=== PATIENT | male | born 1985 | race Caucasian/White ===

== ENCOUNTER 2017-10-07 14:43 | Emergency (ER) | payer BC, OTHER ==
[2017-10-07 14:49] VITALS: BP 130/83; PULSE 80; TEMP 98; BMI 40.3
[2017-10-07] MEDS ORDERED: KETOROLAC TROMETHAMINE 60 MG/2 ML VIAL IM ONE (15:45)
[2017-10-07] MEDS ORDERED: KETOROLAC TROMETHAMINE 60 MG/2 ML VIAL ONE (15:47)
--- NOTE | 2017-10-07 15:53 | PDOC ---
History of Present Illness - General Chief Complaint: Pain, Acute Stated Complaint: SHOULDER PAIN Time Seen by Provider: 10/07/17 15:00 History Source: Patient Exam Limitations: No Limitations - History of Present Illness Initial Comments: 10/07/17 15:50 32-year-old male presents to the ED with complaints of right shoulder pain for the past 2 days. Patient states was leaning over to pick something up 3 days ago but had no discomfort to the area and then the next morning woke up with pain causing him difficulty raising his arm to the side and in the front. Patient denies radiation of pain down his right arm to his right chest or abdomen. Patient denies rash, swelling or deformity or previous injury to affected area. 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 Timing/Duration: other Severity: mild Associated Symptoms: reports: denies symptoms Past History - Past Medical History Allergies/Adverse Reactions: Allergies Allergy/AdvReac Type Severity Reaction Status Date / Time No Known Allergies Allergy Verified 10/07/17 14:49 Home Medications: Ambulatory Orders NK [No Known Home Medication] 10/07/17 COPD: No - Immunization History Immunization Up to Date: No - Suicide/Smoking/Psychosocial Hx Smoking History: Never smoked Have you smoked in the past 12 months: No Information on smoking cessation initiated: No Hx Alcohol Use: No Drug/Substance Use Hx: No Substance Use Type: None Patient Lives Alone: No Lives with/in: spouse/SO Review of Systems - Review of Systems Able to Perform ROS?: No Constitutional: No: Symptoms Reported Musculoskeletal: Yes: Joint Pain (right shoulder). No: Joint Swelling, Muscle Pain Integumentary: No: Symptoms Reported Neurological: No: Symptoms reported *Physical Exam - Vital Signs Last Vital Signs Temp Pulse Resp BP Pulse Ox 98 F 80 19 130/83 100 10/07/17 14:47 10/07/17 14:47 10/07/17 14:47 10/07/17 14:47 10/07/17 14:47 - Physical Exam General Appearance: Yes: Nourished, Appropriately Dressed Neck: positive: Supple. negative: Tender, Decreased range of motion Respiratory/Chest: positive: Lungs Clear, Normal Breath Sounds. negative: Respiratory Distress, Accessory Muscle Use Cardiovascular: positive: Regular Rhythm, Regular Rate. negative: Murmur Extremity: positive: Normal Capillary Refill, Normal Inspection. negative: Normal Range of Motion (unable to perform lateral and front raise. 5+ shoulder shrug), Tender (over rightac jount) Integumentary: positive: Normal Color, Warm, Moist Neurologic: positive: Motor Strength 5/5 (ambulatory) ED Treatment Course - RADIOLOGY Radiology Studies Ordered: Category Date Time Status SHOULDER-RIGHT [RAD] Stat Radiology 10/07/17 15:46 Ordered Medical Decision Making - Medical Decision Making 10/07/17 16:03 Pt with right shoulder pain x 2 days. Pt had tenderness over rt ac joint and unable to perform FROM. Pt ordered for xray and toradol 10/07/17 16:33 Pt states feeling moderate relief of rt shoulder pain. *DC/Admit/Observation/Transfer Diagnosis at time of Disposition: Right shoulder pain Qualifiers: Chronicity: acute Qualified Code(s): M25.511 - Pain in right shoulder - Discharge Dispostion Disposition: HOME Condition at time of disposition: Good - Referrals Referrals: Gopal Joiner MD [Staff Physician] - - Patient Instructions Printed Discharge Instructions: DI for Shoulder Pain Additional Instructions: Please follow-up with referred orthopedist and take Motrin as recommended. Please also apply ice to the affected area as much as you can tolerate. - Post Discharge Activity Forms/Work/School Notes: Back to Work
== END 2017-10-07 17:05 | disposition home or self-care (01) ==
LOC: JERFT 14:43
PROC: 3E0233Z Introduction of Anti-inflammatory into Muscle, Percutaneous Approach (ICD-10-PCS; principal; 2017-10-07)
DX: M25.511 Pain in right shoulder (principal)
CPT/HCPCS: 73030-TC-RT; 99281-25

== ENCOUNTER 2018-04-06 15:34 | Observation (INO) | payer BC, OTHER ==
[2018-04-06 15:42] VITALS: BMI 45.0
--- NOTE | 2018-04-06 16:21 | PDOC ---
History of Present Illness - General History Source: Patient Exam Limitations: No Limitations - History of Present Illness Initial Comments: 04/06/18 16:23 The patient is a 33 year old male, with no significant past medical history, who presents to the emergency department s/p syncopal episode earlier this evening. The patient reports he was going from a seated to standing position to get ready for work, when suddenly he passed out for several seconds. The patient reports waking up with left sided chest pain and palpitations. He describes the pain as a burning sensation that radiates down his left arm. Patient reports his chest pain lasted about 30 minutes. He denies any associated back pain, shortness of breath, diaphoresis, lightheadedness, or lower extremity edema. He denies any abdominal pain, nausea or vomiting. He denies any recent fever, chills, headache, or dizziness. Patient is scheduled to see a Dealer Compliance Representative for a holter monitor and a stress test, as he has had similar episodes of chest pain in the past. He denies any recent travel or sick contacts. Patient is not on any blood thinners Allergies: NKDA Past Surgical History: None reported Social History: Non smoker. No ETOH or recreational drug Family History: DC(uncle, at 45). PCP: At [facility] <Con Segovia - Last Filed: 04/06/18 17:03> - General History Source: Patient Exam Limitations: No Limitations <Haley Arroyo - Last Filed: 04/06/18 17:50> - General Chief Complaint: Chest Pain Stated Complaint: chest pain Past History <Con Segovia - Last Filed: 04/06/18 17:03> - Past Medical History COPD: No DVT: No - Immunization History Immunization Up to Date: No - Suicide/Smoking/Psychosocial Hx Smoking History: Never smoked Have you smoked in the past 12 months: No Hx Alcohol Use: No Drug/Substance Use Hx: No Substance Use Type: Alcohol <Haley Arroyo - Last Filed: 04/06/18 17:50> - Past Medical History Allergies/Adverse Reactions: Allergies Allergy/AdvReac Type Severity Reaction Status Date / Time No Known Allergies Allergy Verified 04/06/18 15:35 Home Medications: Ambulatory Orders NK [No Known Home Medication] 04/06/18 Review of Systems - Review of Systems Able to Perform ROS?: Yes Comments:: 04/06/18 16:23 GENERAL/CONSTITUTIONAL: No fever or chills. No weakness. HEAD, EYES, EARS, NOSE AND THROAT: No change in vision. No ear pain or discharge. No sore throat. CARDIOVASCULAR: No chest pain or shortness of breath. RESPIRATORY: No cough, wheezing, or hemoptysis. GASTROINTESTINAL: No nausea, vomiting, diarrhea or constipation. GENITOURINARY: No dysuria, frequency, or change in urination. MUSCULOSKELETAL: No joint or muscle swelling or pain. No neck or back pain. SKIN: No rash NEUROLOGIC: +Loss of consciousness. No headache, vertigo, or change in strength/ sensation. ENDOCRINE: No increased thirst. No abnormal weight change. HEMATOLOGIC/LYMPHATIC: No anemia, easy bleeding, or history of blood clots. ALLERGIC/IMMUNOLOGIC: No hives or skin allergy. <Con Segovia - Last Filed: 04/06/18 17:03> *Physical Exam - Vital Signs Last Vital Signs Temp Pulse Resp BP Pulse Ox 99.2 F 94 H 16 144/92 94 L 04/06/18 15:35 04/06/18 15:35 04/06/18 15:35 04/06/18 15:35 04/06/18 15:35 - Physical Exam Comments: 04/06/18 16:24 GENERAL: Awake, alert, and fully oriented, in no acute distress HEAD: No signs of trauma EYES: PERRLA, EOMI, sclera anicteric, conjunctiva clear ENT: Auricles normal inspection, hearing grossly normal, nares patent. Moist mucosa NECK: Normal ROM, supple, no lymphadenopathy, JVD, or masses LUNGS: Breath sounds equal, clear to auscultation bilaterally. No wheezes, and no crackles HEART: Regular rate and rhythm, normal S1 and S2, no murmurs, rubs or gallops ABDOMEN: Morbidly obese. Soft, nontender, normoactive bowel sounds. No guarding , no rebound. No masses EXTREMITIES: Normal range of motion, no edema. No erythema or tenderness. DP/ PT pulses 2+ and symmetric. Warm and well perfused. NEUROLOGICAL: Moves all extremities. Normal speech, normal gait SKIN: Warm, Dry, normal turgor, no rashes or lesions noted. <Con Segovia - Last Filed: 04/06/18 17:03> - Vital Signs Last Vital Signs Temp Pulse Resp BP Pulse Ox 99.2 F 94 H 16 144/92 94 L 04/06/18 15:35 04/06/18 15:35 04/06/18 15:35 04/06/18 15:35 04/06/18 15:35 <Haley Arroyo - Last Filed: 04/06/18 17:50> Heart Score/ECG Review - History History: Moderately suspicious - Electrocardiogram EKG: Non specific repolarization disturbance - Age Age: </= 45 - Risk Factors Risk Factors Heart Score: Yes Positive family hx of cardiac disease, Yes Hx Obesity Based on the list above the patient has:: 1-2 risk factors - Troponin Troponin: </= normal limit - Score Heart Score - Total: 3 #1 General ECG Interpretation: Sinus Rhythm, Normal Rate (82), Normal Intervals, No acute ischemic changes (TWI II, flat AVF) <Haley Arroyo - Last Filed: 04/06/18 17:50> ED Treatment Course - LABORATORY CBC & Chemistry Diagram: 04/06/18 16:33 04/06/18 16:33 <Con Segovia - Last Filed: 04/06/18 17:03> - LABORATORY CBC & Chemistry Diagram: 04/06/18 16:33 04/06/18 16:33 <Haley Arroyo - Last Filed: 04/06/18 17:50> Medical Decision Making - Medical Decision Making 04/06/18 16:19 33 yo m h/o obesity, here s/p syncopal event. precipitated by cp and racing heart beat. breif loc. landed on bed. no f/c no n/v lasteed 30 min. occasional bout of cp radiating to back and arm. no new numbnes or tingling. no sob. no leg swelling no h/o pe or dvt. on exam awake alert lungs clear bilaterally heart rrr no mrg. abd obese soft nt. ext no edema. no calf tenderness. nuero alert oriented x 3 plan: differential dysrhtymia, acs, vasovagal, dehydration, anemia. plan ekg labs trop cxr asa. due to obesity and risk factor of family h/o cad. pt will require short observation repeat troponoin. 04/06/18 17:50 intial trop negative. given asa cxr unremarkable. labs unremarkable. due to risk factors, severe obesity and family history will admit to observation on telemtry for rule out. <Haley Arroyo - Last Filed: 04/06/18 17:50> *DC/Admit/Observation/Transfer - Attestations Scribe Attestion: 04/06/18 16:24 Documentation prepared by Con Segovia, acting as medical records assistant for Haley Arroyo MD. <Con Segovia - Last Filed: 04/06/18 17:03> - Discharge Dispostion Decision to Admit order: Yes <Haley Arroyo - Last Filed: 04/06/18 17:50> Diagnosis at time of Disposition: Syncope, Chest pain - Discharge Dispostion Condition at time of disposition: Stable
[2018-04-06] MEDS ORDERED: ASPIRIN 81 MG CHEWABLE TABLETS PO ONE (16:23)
[2018-04-06] MEDS ORDERED: ASPIRIN 81 MG CHEWABLE TABLETS ONE (16:25)
[2018-04-06 16:56] LABS: EOS % 4.9 % (0-4.5); HEMATOCRIT 44.6 % (35.4-49); HEMOGLOBIN 15.3 GM/dl (11.7-16.9); LYMPH % 29.9 % (8-40); MCH 27.1 pg (25.7-33.7); MCHC 34.2 g/dl (32.0-35.9); MEAN CELL VOLUME 79.3 fl (80-96); MEAN PLT VOLUME 9.7 fl (7.5-11.1); MONO % 8.3 % (3.8-10.2); NEUT % 55.9 % (42.8-82.8); PLATELET COUNT 256 K/MM3 (134-434); RBC 5.63 M/mm3 (4.00-5.60); RDW 13.4 % (11.9-15.9); WHITE BLOOD COUNT 7.1 K/mm3 (4.0-10.8)
[2018-04-06 17:05] LABS: ALBUMIN 3.5 g/dl (3.5-5.0); ALK PHOS 49 U/L (32-92); ANION GAP 6 (8-16); BILIRUBIN,TOTAL 0.4 mg/dl (0.2-1.0); BLOOD UREA NITROGEN 12 mg/dl (7-18); CALCIUM 9.1 mg/dl (8.4-10.2); CHLORIDE 104 mmol/L (98-107); CO2 29 mmol/L (22-28); GLUCOSE,RANDOM 125 mg/dl (74-106); POTASSIUM 3.9 mmol/L (3.5-5.1); SGOT/AST 31 U/L (10-42); SGPT/ALT 45 U/L (10-40); SODIUM 139 mmol/L (136-145); TOT PROT 6.4 g/dl (6.4-8.3)
[2018-04-06] MEDS ORDERED: SODIUM CHLORIDE 0.9% 1000 ML INFUS.BAG IV ONE (17:54)
[2018-04-06] MEDS ORDERED: ACETAMINOPHEN 325 MG TABLET (FP) PO ONE (17:55)
[2018-04-06] MEDS ORDERED: ACETAMINOPHEN 325 MG TABLET (FP) ONE (17:57)
--- NOTE | 2018-04-06 22:03 | HP ---
CHIEF COMPLAINT: Syncope, Chest Pain, L-Arm Numbness, Headache PCP: HISTORY OF PRESENT ILLNESS: 33 y/o man with PMH Severe Obesity. Who presents to the ED with syncope, L- sided chest pain, L- arm numbness x pm, and L- sided BUSH x4 days. Patient reports while getting up from bed he began to have sharp, intermittent chest pain radiating to his lower back, with numbness to his L-arm. Patient also reports having palpitations with SOB and lightheadedness. Patient reports having recent headaches above his left brow- aura "sonic sounds" with some relief with NSAIDs. He denies recent fall or trauma. Patient denies fever, cough , chills, N/V/D, constipation, dysuria ER course was notable for: (1) Troponin I- neg (2) EKG NSR 82 bpm, TWI II, flat AVF (3) Recent Travel: None PAST MEDICAL HISTORY: See HPI PAST SURGICAL HISTORY: Pilonidal Cyst Social History: Smoking: Never Alcohol: Social Drugs: Never Lives with spouse, employed Bulk Truck Driver Family History: Mother: DM, Sleep Apnea Uncle: DC Aunt: DC, DM Paternal Grandmother: Stroke, DM Maternal Grandmother: DM Allergies No Known Allergies Allergy (Verified 04/06/18 15:35) HOME MEDICATIONS: Home Medications Medication Instructions Recorded NK [No Known Home Medication] 04/06/18 REVIEW OF SYSTEMS CONSTITUTIONAL: Absent: fever, chills, diaphoresis, generalized weakness, malaise, loss of appetite, weight change HEENT: Absent: rhinorrhea, nasal congestion, throat pain, throat swelling, difficulty swallowing, mouth swelling, ear pain, eye pain, visual changes CARDIOVASCULAR: chest pain, syncope, palpitations, lightheadedness Absent: irregular heart rate, peripheral edema RESPIRATORY: shortness of breath Absent: cough, dyspnea with exertion, orthopnea, wheezing, stridor, hemoptysis GASTROINTESTINAL: Absent: abdominal pain, abdominal distension, nausea, vomiting, diarrhea, constipation, melena, hematochezia GENITOURINARY: Absent: dysuria, frequency, urgency, hesitancy, hematuria, flank pain, genital pain MUSCULOSKELETAL: back pain Absent: myalgia, arthralgia, joint swelling, neck pain SKIN: Absent: rash, itching, pallor HEMATOLOGIC/IMMUNOLOGIC: Absent: easy bleeding, easy bruising, lymphadenopathy, frequent infections ENDOCRINE: Absent: unexplained weight gain, unexplained weight loss, heat intolerance, cold intolerance NEUROLOGIC: headache, paresthesias Absent: focal weakness, dizziness, unsteady gait, seizure, mental status changes , bladder or bowel incontinence PSYCHIATRIC: Absent: anxiety, depression, suicidal or homicidal ideation, hallucinations. PHYSICAL EXAMINATION Vital Signs - 24 hr 04/06/18 04/06/18 04/06/18 15:35 17:50 18:40 Temperature 99.2 F 98 F Pulse Rate 94 H 86 Pulse Rate [ 70 Apical] Pulse Rate [ Right side Sitting] Pulse Rate [ Right side Standing] Pulse Rate [ Right side Supine] Respiratory 16 17 18 Rate Blood Pressure 144/92 145/70 Blood Pressure 114/64 [Left Arm] Blood Pressure [Right side Sitting] Blood Pressure [Right side Standing] Blood Pressure [Right side Supine] O2 Sat by Pulse 94 L 97 Oximetry (%) 04/06/18 19:04 Temperature Pulse Rate Pulse Rate [ Apical] Pulse Rate [ 72 Right side Sitting] Pulse Rate [ 72 Right side Standing] Pulse Rate [ 87 Right side Supine] Respiratory Rate Blood Pressure Blood Pressure [Left Arm] Blood Pressure 146/95 [Right side Sitting] Blood Pressure 140/85 [Right side Standing] Blood Pressure 145/70 [Right side Supine] O2 Sat by Pulse Oximetry (%) GENERAL: Severe Obesity, awake, alert, and fully oriented, in no acute distress. HEAD: Normal with no signs of trauma. EYES: Pupils equal, round and reactive to light, extraocular movements intact, sclera anicteric, conjunctiva clear. No lid lag. EARS, NOSE, THROAT: Ears normal, nares patent, oropharynx clear without exudates. Moist mucous membranes. NECK: Normal range of motion, supple without lymphadenopathy, JVD, or masses. LUNGS: Breath sounds equal, clear to auscultation bilaterally. No wheezes, and no crackles. No accessory muscle use. HEART: Regular rate and rhythm, normal S1 and S2 without murmur, rub or gallop. CP non-reproducible ABDOMEN: Soft, nontender, not distended, normoactive bowel sounds, no guarding, no rebound, no masses. No hepatomegaly or splenomegaly. MUSCULOSKELETAL: Normal range of motion at all joints. No bony deformities or tenderness. No CVA tenderness. UPPER EXTREMITIES: 2+ pulses, warm, well-perfused. No cyanosis. No clubbing. No peripheral edema. LOWER EXTREMITIES: 2+ pulses, warm, well-perfused. No calf tenderness. No peripheral edema. NEUROLOGICAL: Cranial nerves II-XII intact. Normal speech. Gait not observed. PSYCHIATRIC: Cooperative. Good eye contact. Appropriate mood and affect. SKIN: Warm, dry, normal turgor, no rashes or lesions noted, normal capillary refill. Laboratory Results - last 24 hr 04/06/18 04/06/18 04/06/18 16:33 16:33 16:33 WBC 7.1 RBC 5.63 H Hgb 15.3 Hct 44.6 MCV 79.3 L MCH 27.1 MCHC 34.2 RDW 13.4 Plt Count 256 MPV 9.7 Absolute Neuts (auto) 4.0 Neutrophils % 55.9 Lymphocytes % 29.9 Monocytes % 8.3 Eosinophils % 4.9 H Basophils % 1.0 Sodium 139 Potassium 3.9 Chloride 104 Carbon Dioxide 29 H Anion Gap 6 L BUN 12 Creatinine 1.0 Creat Clearance w eGFR > 60 Random Glucose 125 H Calcium 9.1 Total Bilirubin 0.4 AST 31 ALT 45 H Alkaline Phosphatase 49 Troponin I < 0.03 Total Protein 6.4 Albumin 3.5 ASSESSMENT/PLAN: 33 y/o man PMH Severe Obesity. Placed in Tele Observation for Chest Pain r/o ACS , Syncope, Acute Headache. Plan: 1. Cardiology Chest Pain Syncope - r/o ACS - Continue cardiac monitoring - HEART SCORE 3 - DARA Score 1 - Serial Enzymes negx1 - Chest Xray- no acute pathology - EKG- NSR with TWI II, flat AVF, no available study to compare - Asa given in ED, will continue - Appreciate Cardiology consult - Echo - Lipid Profile in am - HgbA1c in am - EKG in am 2. Neurology Acute Headache - CT Head in am r/o ICH, mass or tumor - Fioricet prn - Consider Neurology if condition worsens or f/u outpatient if CT head neg - Neuro checks 3. Pulmonology r/o CARLOS - STOP-BANG Score 6 - Elevate HOB - f/u Sleep Study outpatient - f/u with Pulmonology - Monitor vitals 4. Endocrinology Severe Obesity - Monitor vitals - RD Consult - Carb Control Diet - f/u Bariatrics outpatient 5. FEN - PO Fluids as tolerated - Replete lytes prn - Low Na, Low Cholesterol, Carb Control Diet 6. DVT ppx - OOB - SCDs - Consider ACs if LOS > 48 hrs Code Status: Full Code Dispo: Tele Observation Problem List - Problem (1) Syncope Code(s): R55 - SYNCOPE AND COLLAPSE (2) Chest pain Code(s): R07.9 - CHEST PAIN, UNSPECIFIED (3) Acute headache Code(s): R51 - HEADACHE (4) CARLOS (obstructive sleep apnea) Code(s): G47.33 - OBSTRUCTIVE SLEEP APNEA (ADULT) (PEDIATRIC) (5) Severe obesity (BMI >= 40) Code(s): E66.01 - MORBID (SEVERE) OBESITY DUE TO EXCESS CALORIES Visit type - Emergency Visit Emergency Visit: Yes ED Registration Date: 04/06/18 Care time: The patient presented to the Emergency Department on the above date and was hospitalized for further evaluation of their emergent condition. - New Patient This patient is new to me today: Yes Date on this admission: 04/06/18 - Critical Care Critical Care patient: No Hospitalist Screening - Colonoscopy Questionnaire Colonoscopy Questionnaire: Colonoscopy Questionnaire - Patient: 50 - 75 years old and never had a screening colonoscopy: No History of colon or rectal polyps, or CA: No History of IBD, Crohn's disease or UC: No History of abdominal radiation therapy as a child: No - Relative: 1 with colon or rectal CA, or polyps at age 60 or younger: No Colon or rectal CA diagnosed at age 45 or younger: No Multiple relatives with colon or rectal CA: No - Outcome: Screening Result: Negative Screen
[2018-04-07] MEDS ORDERED: ACETAMINOPHEN/CAFFEINE/BUTALBITAL 1 TAB PO PRN (02:47)
[2018-04-07 08:59] LABS: ANION GAP 3 (8-16); BLOOD UREA NITROGEN 11 mg/dl (7-18); CALCIUM 8.8 mg/dl (8.4-10.2); CHLORIDE 106 mmol/L (98-107); CO2 28 mmol/L (22-28); GLUCOSE,RANDOM 101 mg/dl (74-106); MAGNESIUM 1.9 mg/dL (1.8-2.4); PHOSPHOROUS 4.5 mg/dl (2.5-4.6); SODIUM 137 mmol/L (136-145)
[2018-04-07 09:05] LABS: CHOLESTEROL 219 mg/dl; HDL CHOLESTEROL 33 mg/dl (29-89); LDL CHOLESTEROL (ONLY DFH) 152 mg/dl; TRIGLYCERIDES 170 mg/dl (35-160)
[2018-04-07 09:16] LABS: BASO % 0.9 % (0-2.0); EOS % 5.6 % (0-4.5); HEMATOCRIT 44.1 % (35.4-49); HEMOGLOBIN 14.7 GM/dl (11.7-16.9); LYMPH % 31.6 % (8-40); MCH 26.4 pg (25.7-33.7); MCHC 33.3 g/dl (32.0-35.9); MEAN CELL VOLUME 79.5 fl (80-96); MEAN PLT VOLUME 9.9 fl (7.5-11.1); MONO % 9.3 % (3.8-10.2); NEUT % 52.6 % (42.8-82.8); PLATELET COUNT 233 K/MM3 (134-434); RBC 5.55 M/mm3 (4.00-5.60)
[2018-04-07] MEDS ORDERED: ASPIRIN 81 MG CHEWABLE TABLETS PO SCH (10:00)
--- NOTE | 2018-04-07 12:30 | CON.CARD ---
Cardiology Consult (text) - Consultation Consultation Note: cc: cp hpi: 33 m hx obesity here for cp. For weeks has had intermittent cp. Sharp, left chest/shoulder, lasts a second, resolves on own, worse with movement of arm. Also occasional palps (heart racing for few seconds) over past few weeks. Yesterday stood up quickly and felt lightheaded and thinks he passed out briefly. Feeling well now. No hx hrt dz. pmh: per hpi psh: nc social: no tob fam: uncle mi 45 ros: per hpi; no nvd fever, cough, gib hematuria dysuria wt loss muscle pains meds: Home Medications Medication Instructions Recorded NK [No Known Home Medication] 04/06/18 pe: Vital Signs Period Temp Pulse Resp BP Sys/Vizcarra Pulse Ox Last 24 Hr 97.7 F-99.2 F 63-94 16-19 113-146/62-95 94-100 nad no jvd rrr s1s2 no mrg cta bl nl eff aaox3 no le e/c/c abd nt nd pos bs no jaundice diaphoresis pos dp pt no carotid bruits Laboratory Last Values WBC 7.0 K/mm3 (4.0-10.8) 04/07/18 07:33 RBC 5.55 M/mm3 (4.00-5.60) 04/07/18 07:33 Hgb 14.7 GM/dl (11.7-16.9) 04/07/18 07:33 Hct 44.1 % (35.4-49) 04/07/18 07:33 MCV 79.5 fl (80-96) L 04/07/18 07:33 MCH 26.4 pg (25.7-33.7) 04/07/18 07:33 MCHC 33.3 g/dl (32.0-35.9) 04/07/18 07:33 RDW 14.0 % (11.9-15.9) 04/07/18 07:33 Plt Count 233 K/MM3 (134-434) 04/07/18 07:33 MPV 9.9 fl (7.5-11.1) 04/07/18 07:33 Absolute Neuts (auto) 3.7 # 04/07/18 07:33 Neutrophils % 52.6 % (42.8-82.8) 04/07/18 07:33 Lymphocytes % 31.6 % (8-40) 04/07/18 07:33 Monocytes % 9.3 % (3.8-10.2) 04/07/18 07:33 Eosinophils % 5.6 % (0-4.5) H 04/07/18 07:33 Basophils % 0.9 % (0-2.0) 04/07/18 07:33 Sodium 137 mmol/L (136-145) 04/07/18 07:33 Potassium 4.0 mmol/L (3.5-5.1) 04/07/18 07:33 Chloride 106 mmol/L (98-107) 04/07/18 07:33 Carbon Dioxide 28 mmol/L (22-28) 04/07/18 07:33 Anion Gap 3 (8-16) L 04/07/18 07:33 BUN 11 mg/dl (7-18) 04/07/18 07:33 Creatinine 1.0 mg/dl (0.6-1.3) 04/07/18 07:33 Creat Clearance w eGFR > 60 (>60) 04/07/18 07:33 Random Glucose 101 mg/dl (74-106) 04/07/18 07:33 Calcium 8.8 mg/dl (8.4-10.2) 04/07/18 07:33 Phosphorus 4.5 mg/dl (2.5-4.6) 04/07/18 07:33 Magnesium 1.9 mg/dL (1.8-2.4) 04/07/18 07:33 Total Bilirubin 0.4 mg/dl (0.2-1.0) 04/06/18 16:33 AST 31 U/L (10-42) 04/06/18 16:33 ALT 45 U/L (10-40) H 04/06/18 16:33 Alkaline Phosphatase 49 U/L (32-92) 04/06/18 16:33 Troponin I < 0.03 ng/ml (0.00-0.06) 04/07/18 07:33 Total Protein 6.4 g/dl (6.4-8.3) 04/06/18 16:33 Albumin 3.5 g/dl (3.5-5.0) 04/06/18 16:33 Triglycerides 170 mg/dl (35-160) H 04/07/18 07:33 Cholesterol 219 mg/dl 04/07/18 07:33 Total LDL Cholesterol 152 mg/dl 04/07/18 07:33 HDL Cholesterol 33 mg/dl (29-89) 04/07/18 07:33 tele: sr ecg: sr, nl intervals, no ischemic changes cxr: clear lungs a/p: 33 m hx obesity here for cp. cp: -atypical, msk qualities. No signs acs. ECG and ce's benign. -outpt echo and ett. palps: -tele, ecg benign -outpt echo presyncope/syncope: -ecg, tele, exam all unremarkable -no signs chf, acs, arrhythmia -ortho vs normal -likely vasovagal. can have routine outpt echo. consider event monitor if sxs recur. ok for dc from cardiac pov
[2018-04-07 17:09] VITALS: BP 129/68; PULSE 74; TEMP 98.4
--- NOTE | 2018-04-09 22:09 | EKG ---
Test Reason : Blood Pressure : / mmHG Vent. Rate : 069 BPM Atrial Rate : 069 BPM P-R Int : 152 ms QRS Dur : 098 ms QT Int : 426 ms P-R-T Axes : 043 -20 -08 degrees QTc Int : 456 ms NORMAL SINUS RHYTHM MODERATE VOLTAGE CRITERIA FOR LVH, MAY BE NORMAL VARIANT NONSPECIFIC ST AND T WAVE ABNORMALITY ABNORMAL ECG WHEN COMPARED WITH ECG OF 06-APR-2018 15:50, NO SIGNIFICANT CHANGE WAS FOUND Confirmed by MICHELE ONTIVEROS MD ([id number]) on 04/09/2018 10:09:36 PM Referred By: MD STEPHENSON Confirmed By:MICHELE ONTIVEROS MD
--- NOTE | 2018-04-09 22:10 | EKG ---
Test Reason : Blood Pressure : / mmHG Vent. Rate : 082 BPM Atrial Rate : 082 BPM P-R Int : 146 ms QRS Dur : 098 ms QT Int : 382 ms P-R-T Axes : 039 -19 006 degrees QTc Int : 446 ms NORMAL SINUS RHYTHM MODERATE VOLTAGE CRITERIA FOR LVH, MAY BE NORMAL VARIANT NONSPECIFIC T WAVE ABNORMALITY ABNORMAL ECG NO PREVIOUS ECGS AVAILABLE Confirmed by MICHELE ONTIVEROS MD ([id number]) on 04/09/2018 10:09:38 PM Referred By: MD STEPHENSON Confirmed By:MICHELE ONTIVEROS MD
== END 2018-04-07 20:07 | disposition home or self-care (01) ==
LOC: FER 15:34 → UNDOADMOB 17:39 → FM/S 17:39
PROVIDERS: ADMIT Internal Medicine; ATTEND Nurse Practitioner Family
PROC: 3E0337Z Introduction of Electrolytic and Water Balance Substance into Peripheral Vein, Percutaneous Approach (ICD-10-PCS; principal; 2018-04-06)
DX: R55 Syncope and collapse (principal); R07.89 Other chest pain; E66.01 Morbid (severe) obesity due to excess calories; Z68.42 Body mass index [BMI] 45.0-49.9, adult; Z82.49 Family history of ischemic heart disease and other diseases of the circulatory system
CPT/HCPCS: 36415; 70450-TC; 71046-TC-FY; 80048; 80053; 80061; 83036; 83735; 84100; 84484; 85025; 93005; 99284-25; G0378; J7030